=== PATIENT | female | born 1985 | race Caucasian/White ===

== ENCOUNTER 2018-12-11 18:41 | Inpatient (IN) | payer OTHER ==
[~2018-12-11] VITALS: Ht 165.1 cm; Wt 89.5 kg
[~2018-12-11 18:41] MED LIST: IBUP-1222 PO; OXYC-302 PO
[2018-12-11] MEDS ORDERED: D5%-LACTATED RINGERS 1,000 ML IV SCH (18:58)
[2018-12-11] MEDS ORDERED: LACTATED RINGERS 1,000 ML IV SCH ×2 (18:58→19:16)
[2018-12-11] MEDS ORDERED: OXYTOCIN 30U/ 0.9% NaCL 500ML 500 ML IV ONE (18:58)
[2018-12-11] MEDS ORDERED: FENTANYL PF 100 MCG/2ML IVPush PRN (19:00)
[2018-12-11] MEDS ORDERED: FENTANYL PF 100 MCG/2ML IV PRN (19:00)
[2018-12-11] MEDS ORDERED: FENTANYL/BUPIV./NS/PF 250 ML EPIDCONT SCH (19:16)
[2018-12-11 19:22] VITALS: BP 116/65
[2018-12-11] MEDS ORDERED: EPHEDRINE 50 MG/ML, 1ML IVPush PRN (19:30)
[2018-12-11] MEDS ORDERED: FENTANYL PF 500 MCG, BUPIVACAINE/PF 0.5%, 30ML 62.5 ML in SODIUM CHLORIDE 0.9% 177.5 ML EPIDCONT SCH (19:30)
[2018-12-11] MEDS ORDERED: LACTATED RINGERS 1,000 ML IVBOLUS PRN (19:30)
[2018-12-11 19:35] LABS: BASOPHILS # (AUTO) 0.03 x10^3/uL (0-0.1); BASOPHILS % (AUTO) 0 % (0-1); EOSINOPHILS % (AUTO) 1 % (1-7); LYMPHOCYTES # (AUTO) 1.48 x10^3/uL (1-3.4); LYMPHOCYTES % (AUTO) 15 % (22-44); MD NO; MEAN CORPUSCULAR HEMOGLOBIN 30.5 pg (27.0-34.8); MEAN CORPUSCULAR HGB CONC 33.9 g/dL (32.4-35.8); MEAN CORPUSCULAR VOLUME 89.9 fL (80-100); MEAN PLATELET VOLUME 8.6 fL (7.4-10.4); MONOCYTES # (AUTO) 0.85 x10^3/uL (0.2-0.8); MONOCYTES % (AUTO) 9 % (2-9); NEUTROPHILS # (AUTO) 7.48 x10^3/uL (1.8-6.8); NEUTROPHILS % (AUTO) 75 % (42-75); PLATELET COUNT 204 x10^3/uL (130-400); RED BLOOD COUNT 3.76 x10^6/uL (3.82-5.3); RED CELL DISTRIBUTION WIDTH 13.8 % (9.6-15.2)
[2018-12-11] MEDS ORDERED: BUPIVACAINE 0.25% ONE (19:38)
[2018-12-11] MEDS ORDERED: MISOPROSTOL 200 MCG TABLET ONE (19:49)
[2018-12-11] MEDS ORDERED: OXYTOCIN 30U/ 0.9% NaCL 500ML 500 ML ONE ×2 (19:49→21:21)
[2018-12-11] MEDS ORDERED: NEWBORN KIT ONE (19:49)
[2018-12-11] MEDS ORDERED: LIDOCAINE 1%, 20ML ONE (19:49)
[2018-12-11] MEDS: OXYTOCIN 30U/ 0.9% NaCL 500ML 500 ML IV SCH (21:59)
[2018-12-11] MEDS ORDERED: DOCUSATE 100 MG CAPSULE PO PRN (22:00)
[2018-12-11] MEDS ORDERED: MEASLES,MUMPS&RUBELLA VACC/PF 0.5 ML SQ PRN (22:00)
[2018-12-11] MEDS ORDERED: RHOGAM FROM BLOOD BANK 1 NOTE EA IM/IV ONE (22:00)
[2018-12-11] MEDS ORDERED: METHYLERGONOVINE 0.2 MG/ML IM PRN (22:00)
[2018-12-11] MEDS ORDERED: CARBOPROST TROMETHAMINE 250 MCG/ML, 1ML IM PRN (22:00)
[2018-12-11] MEDS ORDERED: OXYcodone/APAP 5/325MG TABLET PO PRN (22:00)
[2018-12-11] MEDS ORDERED: DIPH,PERTUSS(ACELL),TET VAC/PF NC IM-VACC PRN (22:00)
[2018-12-11] MEDS ORDERED: MISOPROSTOL 200 MCG TABLET PR PRN (22:00)
[2018-12-11] MEDS ORDERED: ACETAMINOPHEN 325 MG TABLET PO PRN ×2 (22:00)
[2018-12-11 23:45] VITALS: BP 108/70
[2018-12-12] MEDS: OXYcodone/APAP 5/325MG TABLET PO PRN ×3 (03:18→14:00)
[2018-12-12] MEDS: IBUPROFEN 600 MG TABLET PO PRN ×3 (03:18→15:32)
[2018-12-12 06:10] LABS: BASOPHILS # (AUTO) 0.03 x10^3/uL (0-0.1); BASOPHILS % (AUTO) 0 % (0-1); EOSINOPHILS # (AUTO) 0.12 x10^3/uL (0-0.4); EOSINOPHILS % (AUTO) 1 % (1-7); LYMPHOCYTES # (AUTO) 1.25 x10^3/uL (1-3.4); LYMPHOCYTES % (AUTO) 10 % (22-44); MD NO; MEAN CORPUSCULAR HEMOGLOBIN 30.6 pg (27.0-34.8); MEAN CORPUSCULAR HGB CONC 33.8 g/dL (32.4-35.8); MEAN CORPUSCULAR VOLUME 90.3 fL (80-100); MEAN PLATELET VOLUME 8.8 fL (7.4-10.4); MONOCYTES # (AUTO) 1.31 x10^3/uL (0.2-0.8); MONOCYTES % (AUTO) 10 % (2-9); NEUTROPHILS # (AUTO) 10.18 x10^3/uL (1.8-6.8); NEUTROPHILS % (AUTO) 79 % (42-75); PLATELET COUNT 181 x10^3/uL (130-400); RED BLOOD COUNT 3.49 x10^6/uL (3.82-5.3)
[2018-12-12] MEDS: OXYTOCIN 30U/ 0.9% NaCL 500ML 500 ML IV SCH ×2 (07:59→17:59)
[2018-12-12] MEDS ORDERED: PRENATAL VIT/IRON/FA 1 EACH TABLET PO SCH (09:00)
[2018-12-12 13:04] VITALS: BP 106/71
[2018-12-12 20:10] VITALS: BP 109/72
== END 2018-12-12 21:00 | disposition home or self-care (01) | DRG 807 ==
LOC: LDOP 18:41 → LDIP 19:28 → 2NW 23:45
PROVIDERS: ADMIT Obstetrics & Gynecology; ATTEND Obstetrics & Gynecology
PROC: 10E0XZZ Delivery of Products of Conception, External Approach (ICD-10-PCS; principal; 2018-12-11)
PROC: 10907ZC Drainage of Amniotic Fluid, Therapeutic from Products of Conception, Via Natural or Artificial Opening (ICD-10-PCS; 2018-12-11)
PROC: 3E0R3BZ Introduction of Anesthetic Agent into Spinal Canal, Percutaneous Approach (ICD-10-PCS; 2018-12-11)
PROC: 00HU33Z Insertion of Infusion Device into Spinal Canal, Percutaneous Approach (ICD-10-PCS; 2018-12-11)
DX: O80 Encounter for full-term uncomplicated delivery (principal); Z37.0 Single live birth; Z3A.37 37 weeks gestation of pregnancy
CPT/HCPCS: 36415; S0020; 85025; 86850; 86900; G0378; J3010; J7050; J7120